=== PATIENT | female | born 1980 | race Caucasian/White ===

== ENCOUNTER → 2018-12-10 | Day surgery (SDC) | payer OTHER ==
[~2018-12-10] MED LIST: PROTONIX40 M1 PO
--- NOTE | ~2018-12-10 | OP ---
[facility] [address] [place] [address] OPERATIVE REPORT Name: HASMUKH LAAR Room: [facility]#: [id number] Admission: 12/10/18 Attend Phys: Yazan Carlton Discharge: Date of : 78 Report #: [id number] THIS REPORT FOR: //name// CC: Jacque Carlton DATE OF SERVICE: 12/10/2018 PREOPERATIVE DIAGNOSIS: Symptomatic cholelithiasis. POSTOPERATIVE DIAGNOSIS: Symptomatic cholelithiasis. PROCEDURE: Laparoscopic cholecystectomy. SURGEON: aYzan Carlton MD ANESTHESIA: General. ESTIMATED BLOOD LOSS: Minimal. SPECIMEN: Gallbladder. DESCRIPTION OF PROCEDURE: After informed consent was obtained, the patient was brought to the operating room and placed supine. SCDs were placed and working, preoperative antibiotics were administered, general anesthesia was induced. The abdomen was prepped and draped in the usual sterile fashion. A 10 mm incision was made below the umbilicus. Fascia was incised and a trocar was placed. Pneumoperitoneum was established. Three right upper quadrant 5 mm ports were placed. Gallbladder was grasped at the fundus and retracted cephalad. Infundibulum was grasped and retracted laterally. I dissected out the cystic duct and cystic artery. I dissected out the cystic plate. Cystic duct and artery were clipped and ligated. The cystic duct was clipped and ligated with a PDS Endoloop. The cystic artery was clipped and ligated with a single clip. Gallbladder was then taken off the liver bed with electrocautery. It was placed into an Endopouch and removed. Fascia was then closed with a [id number]-[id number] 0 Vicryl. Skin was closed with 4-0 Monocryl. Incisions were sealed with Dermabond. COMPLICATIONS: None. DISPOSITION: The patient was taken to recovery in satisfactory condition. By: [id number] Carlton MD /nazario
[2018-12-10 09:49] LABS: HEMATOCRIT 38.4 % (37.0-47.0)
[2018-12-10 10:01] LABS: CALCIUM 8.8 mg/dL (8.5-10.1); CREATININE 0.9 mg/dL (0.6-1.3); POTASSIUM 4.2 mmol/L (3.5-5.1)
[2018-12-10 10:11] LABS: ALBUMIN 3.4 g/dL (3.4-5.0); TOTAL BILIRUBIN 0.3 mg/dL (<0.1-1.0); TOTAL PROTEIN 6.6 g/dL (6.4-8.2)
--- NOTE | 2018-12-12 14:06 | PATH ---
[address] [address] PATHOLOGY RPT PROCEDURE Name: LETY LARA Room: [facility].#: [id number] Admission: 12/10/18 Date of : 78 Discharge: Report #: [id number] Path Case #: [id number] [facility] Accession Number: [id number] . 01 Material submitted: . gallbladder - GALLBLADDER . 01 Clinical history: . Calculus of gallbladder . 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 . (BILL:mml; 12/12/2018) QL 12/12/2018 1213 Local . 02 Electronically signed: . Dequan William MD, Pathologist NPI- [id number] . 01 Gross description: . The specimen is received in formalin, labeled "Lety Lara, berry". Received is an intact gallbladder measuring 10.0 x 3.6 x 3.4 cm in greatest dimensions displaying a pink-cedeño serosal surface. At the mid aspect of the gallbladder, the specimen is strictured and moderately firm. Opening the specimen reveals a velvety, light schneider mucosa with a gallbladder wall thickness of up to 0.3 cm. Calculi are present displaying a light brown and crystalline to multifaceted appearance. At the strictured-appearing area, the mucosa displays a cystic appearance. Caustic Loader sections, to include the proximal margin, are submitted in cassette A1. Caustic Loader sections through the strictured/cystic area are submitted in cassettes A2 and A3. (CAA; 12/11/2018) QAC/QAC 12/11/2018 09 Local . 02 Pathologist provided ICD-10: K80.12 . 02 CPT . 004147 Specimen Comment: A courtesy copy of this report has been sent to Specimen Comment: [phone], . Specimen Comment: Report sent to / DR JOHNSTON Performed at: [address] [place] [address] PATHOLOGY RPT PROCEDURE Name: LETY LARA Room: [facility]..#: [id number] Admission: 12/10/18 Date of : 78 Discharge: Report #: [id number] Path Case #: [id number] [address] [facility] [address], [place] [id number] MD Terry Lewis MD Phone: [phone] Performed at: 02 [facility] [address], [place], [place] [id number] MD Dequan William MD Phone: [phone]
== END | disposition home or self-care (01) ==
LOC: M.SUR 09:01
PROVIDERS: Surgery
DX: K80.20 Calculus of gallbladder without cholecystitis without obstruction (principal); Z79.899 Other long term (current) drug therapy

== ENCOUNTER → 2019-08-17 | Day surgery (SDC) | payer OTHER ==
[~2019-08-17] MED LIST changes: +NOHOMEMEDICATIONS; +NORCO 5-325 TA1 EAC2 PO
[2019-08-17 06:41] LABS: HEMATOCRIT 38.8 % (37.0-47.0); HEMOGLOBIN 13.3 gm/dL (12.0-15.0); MCH 28.9 pg (26.0-34.0); MCHC 34.3 g/dL (28.0-37.0); MCV 84.3 fL (80.0-100.0); RBC 4.6 mil/uL (4.20-5.00); RDW-CV 14.2 % (10.5-14.5); WBC 8.1 thou/uL (4.0-11.0)
[2019-08-17 06:44] LABS: CALCIUM 8.5 mg/dL (8.5-10.1); CREATININE 1.1 mg/dL (0.6-1.3)
--- NOTE | 2019-08-17 14:37 | EKG ---
[place] [address] ELECTROCARDIOGRAM REPORT Name: HASMUKH LARA Room: [facility]#: [id number] Admission: 08/17/19 Attend Phys: Yazan Jamil Discharge: Date of : 78 Date of Service: 08/17/19 [facility] Report #: [id number] THIS REPORT FOR: //name// [facility] Test Date: 2019-08-17 Test Time: 10:37:42 Pat Name: HASMUKH SOLISSUYAPABERNIE Department: Room: Gender: F [employer] Instructor: Belinda QUINTANILLA RN : 1980 Requested By: Bry Morgan Order Number: [id number] Aron MD: Marv Soria Measurements Intervals [place] Rate: 56 P: 67 NM: 140 QRS: 83 QRSD: 105 T: 72 QT: 441 QTc: 426 Interpretive Statements Sinus rhythm Ventricular trigeminy Low voltage, precordial leads Abnormal R-wave progression, early transition Borderline T abnormalities, anterior leads No previous ECG available for comparison Electronically Signed On 08-17-2019 14:35:33 CDT by Marv Soria [email or web address] <ELECTRONICALLY SIGNED> By: Marv Soria MD, [facility] 08/17/19 1435 1037 1037 Marv Soria MD, [facility] /EPI
--- NOTE | 2019-08-18 11:48 | OP ---
[facility] [address] [place] [address] OPERATIVE REPORT Name: WILLSAVANAHHASMUKH M Room: [facility]#: [id number] Admission: 08/17/19 Attend Phys: Yazan Carlton Discharge: Date of : 78 Report #: [id number] THIS REPORT FOR: //name// cc: Jacque Mccall MD, Allison Louise MD ~ THIS REPORT FOR: //name// CC: Jacque Carlton DATE OF SERVICE: 08/17/2019 PREOPERATIVE DIAGNOSIS: Incarcerated ventral incisional hernia. POSTOPERATIVE DIAGNOSIS: Incarcerated ventral incisional hernia. OPERATION: Laparoscopic repair of incarcerated ventral incisional hernia with mesh. SURGEON: Yazan Carlton MD ANESTHESIA: General. ESTIMATED BLOOD LOSS: Minimal. SPECIMEN: None. DESCRIPTION OF PROCEDURE: After informed consent was obtained, the patient was brought to the operating room and placed supine. SCDs were placed and working, preoperative antibiotics were administered, general anesthesia was induced. The abdomen was prepped and draped in the usual sterile fashion. A 5 mm incision was made in the left upper quadrant. A 5 mm trocar was placed under direct vision. Pneumoperitoneum was established. A left-sided 8 mm trocar and a right-sided 5 mm trocar were placed under direct vision. She had incarcerated omentum in a previous laparoscopic incision defect at the umbilicus. The omentum was fully reduced. The defect measured approximately 1 cm. A Bard Ventralight mesh was brought into the field. This was approximately a 15 x 10 cm oval. It was placed in the abdomen and it was brought up to the abdominal wall. It was tacked with approximately 30 absorbable tacks. I then placed an Ethibond suture as a transfascial suture using a PMI suture passer. The ports were then removed under direct vision. The skin was closed with 4-0 Monocryl. Incisions were sealed with Dermabond. COMPLICATIONS: [place] [address] OPERATIVE REPORT Name: HASMUKH LARA Room: [facility]#: [id number] Admission: 08/17/19 Attend Phys: Yazan Carlton Discharge: Date of : 78 Report #: [id number] DISPOSITION: The patient was taken to recovery in satisfactory condition. <ELECTRONICALLY SIGNED> By: Yazan Carlton MD 08/18/19 1148 0958 1027Yazan Carlton MD /nt
== END | disposition home or self-care (01) ==
LOC: M.SUR 06:07
PROVIDERS: Surgery
DX: K43.0 Incisional hernia with obstruction, without gangrene (principal); K21.9 Gastro-esophageal reflux disease without esophagitis; Z79.899 Other long term (current) drug therapy; Z72.89 Other problems related to lifestyle; Z98.890 Other specified postprocedural states